=== PATIENT | male | born 1995 | race Caucasian/White ===

== ENCOUNTER 2020-12-17 12:45 | Emergency (ER) | payer OTHER ==
[~2020-12-17 12:45] MED LIST: AMOXICILLIN500 MG PO; PERCOCET 5-3251 EACH PO
[2020-12-17] MEDS ORDERED: AMOXICILLIN500 MG PO (13:24)
== END 2020-12-17 13:42 | disposition home or self-care (01) ==
LOC: FER 12:45
DX: K08.89 Other specified disorders of teeth and supporting structures (principal); U07.1 COVID-19
CPT/HCPCS: 99282; Q0163